=== PATIENT | female | born 1985 | race Caucasian/White ===

== ENCOUNTER 2019-08-13 09:40 | Emergency (ER) | payer OTHER ==
[2019-08-13 10:46] VITALS: BP 125/86; PULSE 84
--- NOTE | 2019-08-13 11:05 | EDM.PDOC ---
ED HPI GENERAL MEDICAL PROBLEM - General Chief Complaint: Cardiovascular Problem Stated Complaint: LEG PAIN AND SOB Time Seen by Provider: 08/13/19 10:58 Source of Information: Reports: Patient, RN Notes Reviewed History Limitations: Reports: No Limitations - History of Present Illness INITIAL COMMENTS - FREE TEXT/NARRATIVE: Patient is a 34-year-old female who presents to the ED for the evaluation of left lower leg pain. The patient states that over the last day or so, she noticed some redness and tender areas to her left lower leg. Patient she has multiple varicose veins, however these appear different in nature. The first areas on the left lateral thigh just above the knee, and the second area is on the left medial calf around the posterior mid calf. The patient states that she does a lot of sitting for work, she is on control, and knows that she is overweight. She states that she started googling her symptoms, and thought she might have a blood clot, she states she was having some mild shortness of breath as well. She also used a tele-doc, and they prompted her to get checked for a DVT or pulmonary embolus. The patient denies any sort of fevers or chills , nausea or vomiting or diarrhea, abdominal pain, chest pain. She notes that she is not a smoker, and she states she took a half a tablet of an anxiety medication called hydroxyl, and this seemed to help relieve some of her shortness of breath symptoms. The patient states that she is on chronic prednisone therapy and azathioprine for an eye disorder, that she was evaluated for at [facility], she states that this was called [facility], or PIC. 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 below) Left Lower Leg Pain Score (Numeric/FACES): 7 - Related Data Allergies Allergy/AdvReac Type Severity Reaction Status Date / Time No Known Allergies Allergy Verified 12/02/16 19:48 Home Meds: Home Meds Control Pill 1 tab PO DAILY 12/02/16 [History] Calcium Carbonate [Calcium] 500 mg PO BID 12/02/16 [History] Mecobalamin [B-12] 1,000 mcg SL DAILY 12/02/16 [History] Multivitamin [Flintstones] 1 each PO DAILY 12/02/16 [History] [place]-3 Fatty Acids [Fish Oil] 1 dose PO DAILY 12/02/16 [History] Pantoprazole Sodium [Protonix] 40 mg PO DAILY 12/02/16 [History] Diclofenac Sodium [Voltaren] 50 mg PO BID #14 tab.ec 08/13/19 [Rx] Past Medical History Gastrointestinal History: Reports: Gastritis, GERD - Past Surgical History HEENT Surgical History: Reports: LASIK GI Surgical History: Reports: Bariatric Procedure, Cholecystectomy, Colonoscopy , Other (See Below) Other GI Surgeries/Procedures: endoscopy Social & Family History - Family History Family Medical History: Noncontributory - Tobacco Use Smoking Status *Q: Never Smoker - Caffeine Use Caffeine Use: Reports: Coffee, Soda, Tea - Recreational Drug Use Recreational Drug Use: No ED ROS GENERAL - Review of Systems Review Of Systems: See Below Constitutional: Denies: Fever, Chills HEENT: Reports: No Symptoms Respiratory: Reports: Shortness of Breath. Denies: Cough Cardiovascular: Denies: Chest Pain Endocrine: Reports: No Symptoms GI/Abdominal: Denies: Abdominal Pain, Diarrhea, Nausea, Vomiting : Reports: No Symptoms Musculoskeletal: Reports: No Symptoms Skin: Reports: Erythema (on affected lump sites), Lumps (There are 2 areas, one on the left lateral thigh just above the knee, and one on the left medial calf.) Neurological: Reports: No Symptoms Psychiatric: Reports: No Symptoms Hematologic/Lymphatic: Reports: No Symptoms Immunologic: Reports: No Symptoms ED EXAM, GENERAL - Physical Exam Exam: See Below Exam Limited By: No Limitations General Appearance: Alert, WD/WN, No Apparent Distress Eye Exam: Bilateral Eye: EOMI, Normal Inspection, PERRL Throat/Mouth: Normal Inspection, Normal Lips, Normal Teeth, Normal Gums, Normal Oropharynx, Normal Voice, No Airway Compromise Head: Atraumatic, Normocephalic Neck: Normal Inspection Respiratory/Chest: No Respiratory Distress, Lungs Clear, Normal Breath Sounds, No Accessory Muscle Use, Chest Non-Tender Cardiovascular: Normal Peripheral Pulses, Regular Rate, Rhythm, No Murmur Peripheral Pulses: 3+: Radial (L), Radial (R), Dorsalis Pedis (L), Dorsalis Pedis (R) GI/Abdominal: Normal Bowel Sounds, Soft, Non-Tender, No Distention, No Mass Extremities: Normal Inspection (multiple varicose veins), Normal Capillary Refill Neurological: Alert, Oriented, Normal Cognition, No Motor/Sensory Deficits Psychiatric: Normal Affect, Normal Mood Skin Exam: Warm, Dry, Intact, No Rash, Erythema (2 areas, area 1: Left lateral thigh above the knee, this area is erythematous, tender to the touch, and roughly 2 cm x 2 cm. Area to: Left medial calf, this area is erythematous and tender to the touch, this is just superior to a large varicose vein, this area measures roughly 2 cm x 2 cm.), Other (Multiple varicose veins located on the left lower extremity and right lower extremity.) Course - Vital Signs Last Recorded V/S: Last Vital Signs Temp 97.2 F 08/13/19 10:39 Pulse 84 08/13/19 10:39 Resp 20 08/13/19 10:39 BP 125/86 08/13/19 10:39 Pulse Ox 100 08/13/19 10:39 - Orders/Labs/Meds Orders: Active Orders 24 hr Category Date Time Status Communication Order [RC] STAT Care 08/13/19 13:02 Active Influenza Vaccine Charge [RC] .DISCHARGE Care 08/13/19 13:15 Active Peripheral IV Care [RC] . DIRECTED Care 08/13/19 11:17 Active Peripheral IV Insertion Adult [OM.PC] Stat Oth 08/13/19 11:16 Ordered Labs: Laboratory Tests 08/13/19 08/13/19 08/13/19 Range/Units 11:22 11:22 11:22 WBC 8.12 (3.98-10.04) K/mm3 RBC 4.07 (3.98-5.22) M/mm3 Hgb 13.3 (11.2-15.7) gm/dl Hct 38.3 (34.1-44.9) % MCV 94.1 (79.4-94.8) fl MCH 32.7 H (25.6-32.2) pg MCHC 34.7 (32.2-35.5) g/dl RDW Std Deviation 51.1 H (36.4-46.3) fL Plt Count 132 L (182-369) K/mm3 MPV 9.6 (9.4-12.3) fl Neutrophils % (Manual) 73 H (40-60) % Band Neutrophils % 3 (0-10) % Lymphocytes % (Manual) 19 L (20-40) % Atypical Lymphs % 0 % Monocytes % (Manual) 3 (2-10) % Eosinophils % (Manual) 2 (0.7-5.8) % Basophils % (Manual) 0 L (0.1-1.2) Platelet Estimate Adequate RBC Morph Comment Normal D-Dimer, Quantitative 0.26 (0.19-0.50) mg/L Sodium 140 (136-145) mEq/L Potassium 3.1 L (3.5-5.1) mEq/L Chloride 104 (98-107) mEq/L Carbon Dioxide 29 (21-32) mEq/L Anion Gap 10.1 (5-15) BUN 15 (7-18) mg/dL Creatinine 0.9 (0.55-1.02) mg/dL Est Cr Clr Drug Dosing 80.90 mL/min Estimated GFR (MDRD) > 60 (>60) mL/min BUN/Creatinine Ratio 16.7 (14-18) Glucose 133 H (74-106) mg/dL Calcium 9.1 (8.5-10.1) mg/dL Total Bilirubin 0.8 (0.2-1.0) mg/dL AST 21 (15-37) U/L ALT 37 (14-59) U/L Alkaline Phosphatase 32 L (46-116) U/L C-Reactive Protein < 0.2 (<1.0) mg/dL Total Protein 6.6 (6.4-8.2) g/dl Albumin 3.5 (3.4-5.0) g/dl Globulin 3.1 gm/dL Albumin/Globulin Ratio 1.1 (1-2) Meds: Medications Discontinued Medications Generic Name Dose Route Start Last Admin Trade Name Sixtoq PRN Reason Stop Dose Admin Hydromorphone HCl 0.5 mg 08/13/19 11:17 08/13/19 11:34 Dilaudid IVPUSH 08/13/19 11:18 0.5 mg ONETIME ONE Administration Sodium Chloride 1,000 mls @ 125 mls/hr 08/13/19 11:18 08/13/19 11:34 Normal Saline IV 08/13/19 19:17 125 mls/hr ONETIME ONE Administration Influenza Virus Vaccine 1 each 08/13/19 13:15 Pharmacy To Dose - Influenza Vaccine IM 08/13/19 13:16 ONETIME ONE Influenza Virus Vaccine 60 mcg 08/13/19 13:30 08/13/19 13:22 Fluzone Quad Syringe IM 08/13/19 13:31 60 mcg .ONCE ONE Administration Sodium Chloride 10 ml 08/13/19 11:16 08/13/19 11:34 Saline Flush FLUSH 10 ml ASDIRECTED PRN Administration Keep Vein Open - Re-Assessments/Exams Free Text/Narrative Re-Assessment/Exam: 08/13/19 11:32 Patient presents to the ED for evaluation of left lower leg pain, with redness and tenderness. I did order CBC, CMP, CRP and a d-dimer for initial lab evaluation, an IV will be placed and 0.5 mg Dilaudid will be given for pain relief, and a left lower leg ultrasound will be obtained to evaluate for clot. Will hold off on the chest CT at this time, and will await lab results before making a decision. Patient's PERC score is 1, and states if d-dimer is positive , then CT should be performed to r/o PE. 08/13/19 12:57 Patient's labs are done and within normal limits her potassium was mildly low at 3.1, patient will be given dietary recommendations to supplement this, d- dimer is not elevated, no chest CT will be done today, the ultrasound demonstrated a thrombophlebitis, and not a blood clot. Patient will be prescribed 50 mg full-term twice a day for 7 days for inflammation relief, and advised to use heat packs to the area. Departure - Departure Time of Disposition: 12:58 Disposition: Home, Self-Care 01 Condition: Fair Clinical Impression: Thrombophlebitis Prescriptions: Diclofenac Sodium [Voltaren] 50 mg PO BID #14 tab.ec Instructions: Phlebitis, [id number] Referrals: Fatimah Cruz PA-C [Primary Care Provider] - Forms: ED Department Discharge Additional Instructions: You were evaluated in the ED today for your painful left lower leg. Your laboratory evaluation was within normal limits, There is no sign of a DVT present at today's visit. Your ultrasound demonstrated that you have thrombophlebitis, which is inflammation of the veins. This does cause some tenderness and other symptoms as you are experiencing. Treatment for this as an anti-inflammatory, you were given a prescription for Voltaren, please take one tab twice a day for 7 days for further relief of this, you may also use heat packs to the affected areas to help relief of symptoms. Your prescription was electronic was sent to [facility] pharmacy located near [facility], this pharmacy is only open from 12 to 4 PM today, he will need to go there to obtain your prescription during this timeframe. You may obtain a heat pack if you do not already have one at this time as well. Recommend that you follow up with a varicose vein clinic for further management of your extensive varicose veins near lower extremities. Please return to the ED if symptoms should change or worsen. - My Orders Last 24 Hours: My Active Orders 08/13/19 11:16 Peripheral IV Insertion Adult [OM.PC] Stat 08/13/19 11:17 Peripheral IV Care [RC] . DIRECTED 08/13/19 13:02 Communication Order [RC] STAT 08/13/19 13:15 Influenza Vaccine Charge [RC] .DISCHARGE - Assessment/Plan Last 24 Hours: My Active Orders 08/13/19 11:16 Peripheral IV Insertion Adult [OM.PC] Stat 08/13/19 11:17 Peripheral IV Care [RC] . DIRECTED 08/13/19 13:02 Communication Order [RC] STAT 08/13/19 13:15 Influenza Vaccine Charge [RC] .DISCHARGE
[2019-08-13] MEDS ORDERED: Sodium Chloride 0.9% 10 ML Syringe FLUSH PRN (11:16)
[2019-08-13] MEDS ORDERED: HYDROmorphone 0.5 MG/0.5 ML Syringe IVPUSH ONE (11:17)
[2019-08-13] MEDS ORDERED: Sodium Chloride 0.9% 1,000 ML IV ONE (11:18)
--- NOTE | 2019-08-13 13:11 | US ---
Left lower extremity deep venous ultrasound: Duplex and color flow imaging was obtained of the left common femoral, proximal greater saphenous, superficial femoral, popliteal, posterior tibial and peroneal veins. Right common femoral vein was also evaluated. Findings: Deep veins show normal phasic flow, augmentation and compression. There is a superficial vein which is felt to represent a varicosity showing clot compatible with superficial thrombophlebitis. This is located within the proximal calf. Impression: 1. Findings compatible with superficial thrombophlebitis within the proximal left calf. 2. No evidence of deep venous thrombosis within the left lower extremity or right common femoral vein. Diagnostic code #3
[2019-08-13] MEDS ORDERED: FLU Vacc QS2019-20(6MOS+)/PF 60 MCG/0.5 ML SYRINGE IM ONE (13:30)
== END 2019-08-13 13:24 | disposition home or self-care (01) ==
LOC: JD.ED 09:40
DX: I80.02 Phlebitis and thrombophlebitis of superficial vessels of left lower extremity (principal); K21.9 Gastro-esophageal reflux disease without esophagitis; Z79.899 Other long term (current) drug therapy; Z90.49 Acquired absence of other specified parts of digestive tract; Z23 Encounter for immunization
CPT/HCPCS: 36415; 80053; 85007; 85027; 85379; 86140; 90471; 90686; 93971; 96361; 96374; 99284; J1170; J7040; G0008

== ENCOUNTER 2020-12-11 07:11 | Inpatient (IN) | payer MEDICAID ==
[2020-12-11] MEDS ORDERED: Ondansetron 4 MG/2 ML SDV IVPUSH PRN (07:17)
[2020-12-11] MEDS ORDERED: Sodium Chloride 0.9% 10 ML Syringe FLUSH PRN (07:17)
[2020-12-11] MEDS ORDERED: Nalbuphine 10 MG/1 ML Vial IVPUSH PRN (07:17)
[2020-12-11] MEDS ORDERED: Misoprostol 25 MCG (1/4 of 100 MCG) Tab VAG STA (07:17)
[2020-12-11] MEDS ORDERED: Oxytocin/Lactated Ringers 10 UNIT/1,000 ML BAG IV SCH ×2 (07:30)
--- NOTE | 2020-12-11 07:36 | PCM.LDHP ---
L&D History of Present Illness - General Date of Service: 12/11/20 Admit Problem/Dx: Patient Status Order with Admit Dx/Problem 12/11/20 07:17 Patient Status [ADT] Routine Admission Diagnosis/Problem Admission Diagnosis/Problem High risk in primigravida greater than 35 years of age, antepartum Source of Information: Patient History Limitations: Reports: No Limitations - History of Present Illness Introduction:: Patient is a 35 y/o at 39 0/7 wks who presents for IOL. Doing well. No major contractions. No major issues. - Related Data Allergies/Adverse Reactions: Allergies Allergy/AdvReac Type Severity Reaction Status Date / Time No Known Allergies Allergy Verified 12/02/16 19:48 Home Medications: Home Meds Control Pill 1 tab PO DAILY 12/02/16 [History] Calcium Carbonate [Calcium] 500 mg PO BID 12/02/16 [History] Mecobalamin [B-12] 1,000 mcg SL DAILY 12/02/16 [History] Multivitamin [Flintstones] 1 each PO DAILY 12/02/16 [History] [place]-3 Fatty Acids [Fish Oil] 1 dose PO DAILY 12/02/16 [History] Pantoprazole Sodium [Protonix] 40 mg PO DAILY 12/02/16 [History] Diclofenac Sodium [Voltaren] 50 mg PO BID #14 tab.ec 08/13/19 [Rx] Past Medical History HEENT History: Reports: Other (See Below) ([place]shot chorioretinopathy) Gastrointestinal History: Reports: Gastritis, GERD, Other (See Below) (gastric ulcer) Immunologic History: Reports: Other (See Below) - Past Surgical History HEENT Surgical History: Reports: LASIK GI Surgical History: Reports: Bariatric Procedure, Cholecystectomy, Colonoscopy, EGD Female Surgical History: Reports: LEEP Social & Family History - Family History Family Medical History: No Pertinent Family History - Tobacco Use Tobacco Use Status *Q: Former Tobacco User - Caffeine Use Caffeine Use: Reports: Coffee, Soda, Tea - Alcohol Use Alcohol Use History: No - Recreational Drug Use Recreational Drug Use: No H&P Review of Systems - Review of Systems: Review Of Systems: See Below General: Reports: No Symptoms Pulmonary: Reports: No Symptoms Cardiovascular: Reports: No Symptoms Gastrointestinal: Reports: No Symptoms Genitourinary: Reports: No Symptoms Musculoskeletal: Reports: No Symptoms Psychiatric: Reports: No Symptoms Neurological: Reports: No Symptoms L&D Exam - Exam Exam: See Below - OB Specific Contraction Intensity: Irritability Movement: Active Heart Tones: Present Heart Tones per Min: 130 Heart Rate (FHR) Variability: Moderate (6-25 bmp) Presentation: Vertex - Rocha Score Rocha Score Cervix Position: Posterior Rocha Score Consistency: Medium Rocha Score Effacement: 0-30% Rocha Score Dilation: Closed Rocha Score 's Station: -3 Rocha Score Total: 1 - Exam General: Alert, Oriented, Cooperative Lungs: Clear to Auscultation, Normal Respiratory Effort Cardiovascular: Regular Rate, Regular Rhythm GI/Abdominal Exam: Soft, Non-Tender Genitourinary: Normal external exam Extremities: Normal Inspection Skin: Warm, Dry, Intact - Problem List (1) 39 weeks gestation of SNOMED Code(s): 37111862 ICD Code: Z3A.39 - 39 WEEKS GESTATION OF Status: Acute Current Visit: Yes (2) Medication exposure during first trimester of SNOMED Code(s): 31241125 ICD Code: O09.891 - SUPERVISION OF OTHER HIGH RISK PREGNANCIES, FIRST TRIMESTER Status: Acute Current Visit: Yes (3) [place] chorioretinopathy SNOMED Code(s): 082173686 ICD Code: H30.90 - UNSPECIFIED CHORIORETINAL INFLAMMATION, UNSPECIFIED EYE Status: Acute Current Visit: Yes (4) Advanced maternal age (AMA) in SNOMED Code(s): 429169054 ICD Code: [id number] - Status: Acute Current Visit: Yes (5) GBS (group B Streptococcus carrier), +RV culture, currently SNOMED Code(s): 7561052650304, 336044217, 5011616615119 ICD Code: O99.820 - STREPTOCOCCUS B CARRIER STATE COMPLICATING Status: Acute Current Visit: Yes Problem List Initiated/Reviewed/Updated: Yes Orders Last 24hrs: Active Orders 24 hr Category Date Time Status Patient Status [ADT] Routine ADT 12/11/20 07:17 Ordered Communication Order [RC] ASDIRECTED Care 12/11/20 07:17 Ordered Communication Order [RC] ASDIRECTED Care 12/11/20 07:17 Ordered Communication Order [RC] ASDIRECTED Care 12/11/20 07:17 Ordered Communication Order [RC] ASDIRECTED Care 12/11/20 07:17 Ordered Heart Tones [RC] ASDIRECTED Care 12/11/20 07:18 Ordered Monitoring [RC] INTERMITTENT Care 12/11/20 07:17 Ordered Non Stress Test [RC] PER UNIT ROUTINE Care 12/11/20 07:17 Ordered Notify Provider [RC] ASDIRECTED Care 12/11/20 07:17 Ordered Notify Provider [RC] PRN Care 12/11/20 07:17 Ordered Peripheral IV Care [RC] . DIRECTED Care 12/11/20 07:18 Ordered Up ad Mikala [RC] ASDIRECTED Care 12/11/20 07:18 Ordered Vaginal Exam [RC] ASDIRECTED Care 12/11/20 07:17 Ordered Vital Signs [RC] ASDIRECTED Care 12/11/20 07:17 Ordered Regular Diet [DIET] Diet 12/11/20 Breakfast Ordered CBC W/O DIFF,HEMOGRAM [HEME] Routine Lab 12/11/20 07:17 Ordered CORONAVIRUS COVID-19 KYLER [MOLEC] Stat Lab 12/11/20 07:22 Ordered RAPID PLASMA REAGIN,RPR [CHEM] Routine Lab 12/11/20 07:17 Ordered TYPE AND SCREEN [BBK] Routine Lab 12/11/20 07:17 Ordered Ampicillin 1 gm Med 12/12/20 03:00 Ordered Sodium Chloride 0.9% [Normal Saline] 100 ml IV Q4H Ampicillin 2 gm Med 12/11/20 23:00 Ordered Sodium Chloride 0.9% [Normal Saline] 100 ml IV ONETIME Lactated Ringers [Ringers, Lactated] 1,000 ml Med 12/11/20 07:30 Ordered IV ASDIRECTED Nalbuphine [Nubain] Med 12/11/20 07:17 Ordered 10 mg IVPUSH Q2H PRN Ondansetron [Zofran] Med 12/11/20 07:17 Ordered 4 mg IVPUSH Q4H PRN Oxytocin/Lactated Ringers [Pitocin in LR 10 Units/1,000 Med 12/11/20 07:30 Ordered ML] 10 unit in 1,000 ml IV .CONTINUOUS Oxytocin/Lactated Ringers [Pitocin in LR 10 Units/1,000 Med 12/11/20 07:30 Ordered ML] 10 unit in 1,000 ml IV TITRATE Sodium Chloride 0.9% [Saline Flush] Med 12/11/20 07:17 Ordered 10 ml FLUSH ASDIRECTED PRN miSOPROStoL [Cytotec] Med 12/11/20 07:17 Stat 25 mcg VAG NOW STA miSOPROStoL [Cytotec] Med 12/11/20 07:17 Ordered 25 mcg VAG Q4H PRN Electronic Heart Tones Ext w TOCO [WOMSER] Oth 12/11/20 07:17 Ordered Routine Electronic Heart Tones Internal [WOMSER] Per Unit Oth 12/11/20 07:17 Ordered Routine Medication Administration Instruction [OM.PC] Oth 12/11/20 07:30 Ordered ASDIRECTED Peripheral IV Insertion Adult [OM.PC] Routine Oth 12/11/20 07:17 Ordered Resuscitation Status Routine Resus Stat 12/11/20 07:17 Ordered Medication Orders Oxytocin/Lactated Ringer's (Pitocin In Lr 10 Units/1,000 Ml) 10 unit in 1,000 mls @ 12 mls/hr IV TITRATE EDGARDO; Protocol Ampicillin Sodium 2 gm/ Sodium (Chloride) 100 mls @ 200 mls/hr IV ONETIME ONE Stop: 12/11/20 23:29 Ampicillin Sodium 1 gm/ Sodium (Chloride) 100 mls @ 200 mls/hr IV Q4H EDGARDO Oxytocin/Lactated Ringer's (Pitocin In Lr 10 Units/1,000 Ml) 10 unit in 1,000 mls @ 500 mls/hr IV .CONTINUOUS EDGARDO Lactated Ringer's (Ringers, Lactated) 1,000 mls @ 40 mls/hr IV ASDIRECTED EDGARDO Misoprostol (Cytotec) 25 mcg VAG Q4H PRN PRN Reason: cervical ripening Misoprostol (Cytotec) 25 mcg VAG NOW STA Stop: 12/11/20 07:18 Nalbuphine HCl (Nubain) 10 mg IVPUSH Q2H PRN PRN Reason: Pain Ondansetron HCl (Zofran) 4 mg IVPUSH Q4H PRN PRN Reason: Nausea/Vomiting Sodium Chloride (Saline Flush) 10 ml FLUSH ASDIRECTED PRN PRN Reason: Keep Vein Open Assessment/Plan Comment:: * Labs to be done * Cytotec for IOL. Switch to pitocin / AROM when able * GBS prophylaxis when more active * Pain management per patient preference * Anticipate
[2020-12-11] MEDS: Misoprostol 25 MCG (1/4 of 100 MCG) Tab VAG PRN ×3 (12:31→20:41)
--- NOTE | 2020-12-11 18:56 | PCM.PNLD ---
Labor Progress Note - VS & Meds Vital Signs: Last Vital Signs Temp 36.8 C 12/11/20 08:00 Pulse 65 12/11/20 12:35 Resp 16 12/11/20 08:00 BP 137/77 12/11/20 12:35 Pulse Ox 100 12/11/20 12:35 Active Medications: Current Medications Oxytocin/Lactated Ringer's (Pitocin In Lr 10 Units/1,000 Ml) 10 unit in 1,000 mls @ 12 mls/hr IV TITRATE EDGARDO; Protocol Ampicillin Sodium 2 gm/ Sodium (Chloride) 100 mls @ 200 mls/hr IV ONETIME ONE Stop: 12/11/20 23:29 Ampicillin Sodium 1 gm/ Sodium (Chloride) 100 mls @ 200 mls/hr IV Q4H EDGARDO Oxytocin/Lactated Ringer's (Pitocin In Lr 10 Units/1,000 Ml) 10 unit in 1,000 mls @ 500 mls/hr IV .CONTINUOUS EDGARDO Lactated Ringer's (Ringers, Lactated) 1,000 mls @ 40 mls/hr IV ASDIRECTED EDGARDO Misoprostol (Cytotec) 25 mcg VAG Q4H PRN PRN Reason: cervical ripening Last Admin: 12/11/20 16:27 Dose: 25 mcg Documented by: Nalbuphine HCl (Nubain) 10 mg IVPUSH Q2H PRN PRN Reason: Pain Ondansetron HCl (Zofran) 4 mg IVPUSH Q4H PRN PRN Reason: Nausea/Vomiting Sodium Chloride (Saline Flush) 10 ml FLUSH ASDIRECTED PRN PRN Reason: Keep Vein Open Discontinued Medications Misoprostol (Cytotec) 25 mcg VAG NOW STA Stop: 12/11/20 07:18 Last Admin: 12/11/20 08:23 Dose: 25 mcg Documented by: - Uterine Contractions Uterine Monitoring Mode: External [place] Contraction Intensity: Irritability Uterine Resting Tone: Soft - Monitoring Monitor Mode: External Ultrasound Heart Rate (FHR) Baseline: 140 Heart Rate (FHR) Variability: Moderate (6-25 bmp) Accelerations: Present, 15x15 Decelerations: None - Vaginal Exam Dilation (cm): 0-1 - Labor Progress (Free Text) Labor Progress: Doing well. Had 3rd dose of cytotec placed at 1630. Will plan 4th dose at 2030 and then transition to pitocin afterwards.
--- NOTE | 2020-12-11 22:38 | PCM.PREANE ---
Preanesthetic Assessment - Procedure Proposed Procedure: Continuous Labor epidural - Anesthesia/Transfusion/Family Hx Anesthesia History: Prior Anesthesia Without Reaction Transfusion History: No Prior Transfusion(s) - Review of Systems General: No Symptoms Pulmonary: No Symptoms Cardiovascular: No Symptoms Gastrointestinal: No Symptoms Neurological: No Symptoms Other: Reports: None - Physical Assessment Vital Signs: Last Vital Signs Temp 98.2 F 12/11/20 08:00 Pulse 65 12/11/20 12:35 Resp 16 12/11/20 08:00 BP 137/77 12/11/20 12:35 Pulse Ox 100 12/11/20 12:35 Height: 1.7 m Weight: 130.181 kg ASA Class: 3 (morbid obesity) Mental Status: Alert & Oriented x3 Airway Class: Mallampati = 2 Dentition: Reports: Normal Dentition Thyro-Mental Finger Breadths: 3 Mouth Opening Finger Breadths: 3 ROM/Head Extension: Full Lungs: Clear to Auscultation, Normal Respiratory Effort Cardiovascular: Regular Rate, Regular Rhythm - Lab Values: Laboratory Last Values WBC 7.74 K/mm3 (3.98-10.04) 12/11/20 07:17 RBC 3.81 M/mm3 (3.98-5.22) L 12/11/20 07:17 Hgb 11.7 gm/dl (11.2-15.7) D 12/11/20 07:17 Hct 35.6 % (34.1-44.9) 12/11/20 07:17 MCV 93.4 fl (79.4-94.8) 12/11/20 07:17 MCH 30.7 pg (25.6-32.2) 12/11/20 07:17 MCHC 32.9 g/dl (32.2-35.5) 12/11/20 07:17 RDW Std Deviation 47.5 fL (36.4-46.3) H 12/11/20 07:17 Plt Count 138 K/mm3 (182-369) L 12/11/20 07:17 MPV 10.5 fl (9.4-12.3) 12/11/20 07:17 RPR Non-reactive (NONREACTIVE) 12/11/20 07:44 SARS-CoV-2 RNA (KYLER) Negative (NEGATIVE) 12/11/20 07:40 Blood Type Cancelled 12/11/20 07:44 Gel Antibody Screen Cancelled 12/11/20 07:44 - Allergies Allergies/Adverse Reactions: Allergies Allergy/AdvReac Type Severity Reaction Status Date / Time avocado Allergy Swelling Verified 12/11/20 08:42 - Acknowledgements Anesthesia Type Planned: Epidural Pt an Appropriate Candidate for the Planned Anesthesia: Yes Alternatives and Risks of Anesthesia Discussed w Pt/Guardian: Yes Pt/Guardian Understands and Agrees with Anesthesia Plan: Yes PreAnesthesia Questionnaire HEENT History: Reports: Other (See Below) Gastrointestinal History: Reports: Gastritis, GERD, Other (See Below) DIRECT MAIL MARKETER History: Reports: Psychiatric History: Reports: Other (See Below) Other Psychiatric History: Suicide Thoughts 2-3 years ago. Endocrine/Metabolic History: Reports: Obesity/BMI 30+ Immunologic History: Reports: Other (See Below) - Past Surgical History HEENT Surgical History: Reports: LASIK, Other (See Below) Other HEENT Surgeries/Procedures: Keratomileusis Bilateral GI Surgical History: Reports: Bariatric Procedure, Cholecystectomy, Colonoscopy, EGD Other GI Surgeries/Procedures: endoscopy Female Surgical History: Reports: LEEP - SUBSTANCE USE Tobacco Use Status *Q: Former Tobacco User Tobacco Use Within Last Twelve Months: Cigarettes Recreational Drug Use History: No - HOME MEDS Home Medications: Home Meds Calcium Carbonate [Calcium] 500 mg PO BID 12/02/16 [History] Multivitamin [Flintstones] 1 each PO DAILY 12/02/16 [History] [place]-3 Fatty Acids [Fish Oil] 1 dose PO DAILY 12/02/16 [History] Pantoprazole Sodium [Protonix] 40 mg PO DAILY 12/02/16 [History] Ascorbic Acid [Vitamin C] 250 mg PO DAILY 12/11/20 [History] Ferrous Sulfate [Iron] 325 mg PO DAILY 12/11/20 [History] azaTHIOprine [Imuran] 50 mg PO DAILY 12/11/20 [History] - CURRENT (IN HOUSE) MEDS Current Meds: Current Medications Oxytocin/Lactated Ringer's (Pitocin In Lr 10 Units/1,000 Ml) 10 unit in 1,000 mls @ 12 mls/hr IV TITRATE EDGARDO; Protocol Ampicillin Sodium 2 gm/ Sodium (Chloride) 100 mls @ 200 mls/hr IV ONETIME ONE Stop: 12/11/20 23:29 Ampicillin Sodium 1 gm/ Sodium (Chloride) 100 mls @ 200 mls/hr IV Q4H EDGARDO Oxytocin/Lactated Ringer's (Pitocin In Lr 10 Units/1,000 Ml) 10 unit in 1,000 mls @ 500 mls/hr IV .CONTINUOUS EDGARDO Lactated Ringer's (Ringers, Lactated) 1,000 mls @ 40 mls/hr IV ASDIRECTED EDGARDO Nalbuphine HCl (Nubain) 10 mg IVPUSH Q2H PRN PRN Reason: Pain Ondansetron HCl (Zofran) 4 mg IVPUSH Q4H PRN PRN Reason: Nausea/Vomiting Sodium Chloride (Saline Flush) 10 ml FLUSH ASDIRECTED PRN PRN Reason: Keep Vein Open Discontinued Medications Misoprostol (Cytotec) 25 mcg VAG Q4H PRN PRN Reason: cervical ripening Last Admin: 12/11/20 20:41 Dose: 25 mcg Documented by: Misoprostol (Cytotec) 25 mcg VAG NOW STA Stop: 12/11/20 07:18 Last Admin: 12/11/20 08:23 Dose: 25 mcg Documented by:
[2020-12-11] MEDS ORDERED: Bupivacaine/fentaNYL/NS 100 ML Bag EPIDUR PRN (22:40)
[2020-12-11] MEDS ORDERED: fentaNYL 100 MCG/2 ML SDV EPIDUR PRN (22:40)
[2020-12-11] MEDS ORDERED: ePHEDrine 50 MG/ML SDV IVPUSH PRN (22:40)
[2020-12-11] MEDS ORDERED: diphenhydrAMINE 50 MG/ML SDV IVPUSH PRN (22:40)
[2020-12-11] MEDS ORDERED: Ampicillin 2 GM in Sodium Chloride 0.9% 100 ML IV ONE (23:00)
[2020-12-12] MEDS: Lactated Ringers 1,000 ML IV SCH ×3 (01:03→12:01)
--- NOTE | 2020-12-12 07:03 | PCM.PNLD ---
Labor Progress Note - VS & Meds Vital Signs: Last Vital Signs Temp 36.8 C 12/11/20 08:00 Pulse 65 12/11/20 12:35 Resp 16 12/11/20 08:00 BP 137/77 12/11/20 12:35 Pulse Ox 100 12/11/20 12:35 Active Medications: Current Medications Diphenhydramine HCl (Benadryl) 25 mg IVPUSH Q6H PRN PRN Reason: pruritis Ephedrine Sulfate (Ephedrine Sulfate) 5 mg IVPUSH ASDIRECTED PRN PRN Reason: Hypotension Fentanyl (Sublimaze) 100 mcg EPIDUR Q3H PRN PRN Reason: Pain Fentanyl/Bupivacaine HCl (Fentanyl/Bupivacaine/Ns 2 Mcg-0.125% 100 Ml) 100 ml EPIDUR ASDIRECTED PRN PRN Reason: Pain Oxytocin/Lactated Ringer's (Pitocin In Lr 10 Units/1,000 Ml) 10 unit in 1,000 mls @ 12 mls/hr IV TITRATE EDGARDO; Protocol Last Admin: 12/12/20 01:03 Dose: 2 munits/min, 12 mls/hr Documented by: Ampicillin Sodium 1 gm/ Sodium (Chloride) 100 mls @ 200 mls/hr IV Q4H EDGARDO Oxytocin/Lactated Ringer's (Pitocin In Lr 10 Units/1,000 Ml) 10 unit in 1,000 mls @ 500 mls/hr IV .CONTINUOUS EDGARDO Lactated Ringer's (Ringers, Lactated) 1,000 mls @ 40 mls/hr IV ASDIRECTED EDGARDO Last Admin: 12/12/20 01:03 Dose: 40 mls/hr Documented by: Nalbuphine HCl (Nubain) 10 mg IVPUSH Q2H PRN PRN Reason: Pain Ondansetron HCl (Zofran) 4 mg IVPUSH Q4H PRN PRN Reason: Nausea/Vomiting Sodium Chloride (Saline Flush) 10 ml FLUSH ASDIRECTED PRN PRN Reason: Keep Vein Open Discontinued Medications Ampicillin Sodium 2 gm/ Sodium (Chloride) 100 mls @ 200 mls/hr IV ONETIME ONE Stop: 12/11/20 23:29 Last Admin: 12/12/20 00:37 Dose: Not Given Documented by: Misoprostol (Cytotec) 25 mcg VAG Q4H PRN PRN Reason: cervical ripening Last Admin: 12/11/20 20:41 Dose: 25 mcg Documented by: Misoprostol (Cytotec) 25 mcg VAG NOW STA Stop: 12/11/20 07:18 Last Admin: 12/11/20 08:23 Dose: 25 mcg Documented by: - Uterine Contractions Uterine Monitoring Mode: External [place] Contraction Intensity: Mild to Moderate Uterine Resting Tone: Soft - Monitoring Monitor Mode: External Ultrasound Heart Rate (FHR) Baseline: 130 Heart Rate (FHR) Variability: Moderate (6-25 bmp) Accelerations: Present, 15x15 Decelerations: Late (rare ), Intermittent (<50% x 20 min) Strip Review: Category II - Vaginal Exam Dilation (cm): 1 Effacement (Percent): 50 Station: -3 Cervical Position: Midposition - Labor Progress (Free Text) Labor Progress: Patient started on Pitocin at 0100. Was to a high of 10. At 0530 had the start of some variables and late appearing decelerations. Pitocin dropped to 7. Eventually did discontinue completely. Myers bulb placed. Will plan on starting antibiotics. Restart pitocin again. Findings carefully reviewed
[2020-12-12] MEDS ORDERED: Ampicillin 2 GM in Sodium Chloride 0.9% 100 ML IV ONE (07:30)
[2020-12-12] MEDS: Ampicillin 1 GM in Sodium Chloride 0.9% 100 ML IV SCH ×4 (11:28→20:11)
[2020-12-12] MEDS ORDERED: Metoclopramide 10 MG/2 ML SDV IVPUSH ONE (12:09)
[2020-12-12] MEDS ORDERED: Citric Acid/Sodium Citrate Solution 30 ML Cup PO ONE (12:09)
[2020-12-12] MEDS ORDERED: ceFAZolin 2 GM in Premix Bag 1 BAG IV ONE (12:09)
[2020-12-12] MEDS ORDERED: ceFAZolin 1 GM in Premix Bag 1 BAG IV ONE (12:09)
--- NOTE | 2020-12-12 12:12 | PCM.SN.2 ---
- Free Text/Narrative Note: 1215 Patient this morning with pitocin discontinued from value of 10 due to recurrent late decelerations. Myers bulb then placed. Restarted pitocin later in AM and at a value of 3 again had large variables and recurrent late decelerations. Pitocin discontinued at that time. Has been minimally qiana since that time. Rates as mild. Myers bulb removed. Patient about 2.5 cm, 50%, -3, medium consistency. Reviewed options of restarting pitocin, AROM, or if desired PLTCS. Reviewed that somewhat concerning with mild contraction pattern and low doses of medication there have been heart rate pattern abnormalities. Discussed whil baby may tolerate labor I am somewhat concerned for intolerance arising as labor progresses. Patient and her allowed time to talk in private. Ultimately they elected to proceed with PLTCS. Will not restart medications. Keep FHR tracing continuously. OR, anesthesia, and Pediatric teams made aware. Daja Guerra MD
[2020-12-12] MEDS ORDERED: Lactated Ringers 2,000 ML ONE (15:25)
[2020-12-12] MEDS ORDERED: Ondansetron 4 MG/2 ML SDV ONE ×2 (15:25→17:19)
[2020-12-12] MEDS ORDERED: Oxytocin 10 Units/1 ML SDV ONE (15:25)
[2020-12-12] MEDS ORDERED: Ketorolac 30 MG/ML SDV ONE (15:25)
[2020-12-12] MEDS ORDERED: ceFAZolin 1 GM Vial ONE ×2 (15:27)
[2020-12-12] MEDS ORDERED: Morphine PF 10 MG/10 ML SDV ONE (15:29)
[2020-12-12] MEDS ORDERED: ePHEDrine 50 MG/ML SDV ONE (16:59)
[2020-12-12] MEDS ORDERED: Methylergonovine 0.2 MG/1 ML Amp ONE (17:07)
[2020-12-12] MEDS ORDERED: fentaNYL 100 MCG/2 ML SDV IVPUSH PRN (17:34)
[2020-12-12] MEDS ORDERED: Meperidine 50 MG/ML Vial IVPUSH PRN (17:34)
[2020-12-12] MEDS ORDERED: diphenhydrAMINE 50 MG/ML SDV IVPUSH PRN ×2 (17:34→18:53)
[2020-12-12] MEDS ORDERED: Ondansetron 4 MG/2 ML SDV IVPUSH PRN (17:34)
[2020-12-12] MEDS ORDERED: Metoclopramide 10 MG/2 ML SDV IV PRN (17:35)
--- NOTE | 2020-12-12 17:36 | PCM.OPNOTE ---
- General Post-Op/Procedure Note Date of Surgery/Procedure: 12/12/20 Operative Procedure(s): Primary low transverse Findings: Baby girl in a vertex presentation. Weight of 7 lbs 3 oz. APGARS of 8 & 8. Normal appearance of uterus, fallopian tubes, and ovaries. Pre Op Diagnosis: 39 1/7 wks gestation. Failed induction - intolerance Post-Op Diagnosis: Same Anesthesia Technique: Spinal Primary Surgeon: Daja Guerra Secondary Surgeon: Tiffani Rosen Anesthesia Provider: Celsa De La Cruz Reason Market Research Analyst Was Necessary: BMI of patient. Speed/safety of procedure Pathology: Cord blood collected. Placenta discarded Fluid Replacement, Intraop: 1,200 Output, Urine Amount: 50 EBL in mLs: 800 Complications: None Condition: Good Free Text/Narrative:: The risks, benefits, indications, potential complications, and alternatives were explained to the patient and informed consent obtained. After induction of anesthesia, the patient was placed in a supine position and then draped and prepped in the usual sterile manner. A Pfannenstiel incision was made and carried down through the subcutaneous tissue to the fascia. Fascial incision was made and extended transversely. The fascia was from the underlying rectus tissue superiorly and inferiorly. The peritoneum was identified and entered. Peritoneal incision was extended longitudinally. The utero-vesical peritoneal reflection was incised transversely and the bladder flap was bluntly freed from the lower uterine segment. A low transverse uterine incision was made sharply with a scalpel and extended bluntly in a cephalocaudad direction. A baby girl was delivered from a vertex presentation with APGARS as above. After the umbilical cord was clamped and cut cord blood was obtained for evaluation. The placenta was removed intact and appeared normal. The uterus was exteriorized and cleared of clots. The uterine outline, tubes and ovaries appeared normal. The uterine incision was closed with running locked sutures of 0 Vicryl. Hemostasis was obtained with a second imbricating layer of 0 Vicryl. Uterine tone poor at this time. Patient given 0.2 mg of IM methergine with good response. The uterus was then placed back into the abdomen. The infracolic gutters were cleared of blood clots. The fascia was then reapproximated with running sutures of 0 Vicryl. The subcutaneous tissue was irrigated with sterile warm normal saline, hemostasis obtained with cautery. This layer was also closed with a running 0 Vicryl. The skin was reapproximated with running Subcuticular 4-0 monocryl sutures. Instrument, sponge, and needle counts were correct prior the abdominal closure and at the conclusion of the case.
--- NOTE | 2020-12-12 17:36 | PCM.POSTAN ---
POST ANESTHESIA ASSESSMENT - MENTAL STATUS Mental Status: Alert, Oriented - VITAL SIGNS Vital Signs: Last Vital Signs Temp 98.2 F 12/11/20 08:00 Pulse 65 12/11/20 12:35 Resp 16 12/11/20 08:00 BP 137/77 12/11/20 12:35 Pulse Ox 100 12/11/20 12:35 1730 113/64 99 75 9 97.7 - RESPIRATORY Respiratory Status: Respiratory Rate WNL, Airway Patent, O2 Saturation Stable, Supplemental Oxygen - CARDIOVASCULAR CV Status: Pulse Rate WNL, Blood Pressure Stable - GASTROINTESTINAL GI Status: No Symptoms - PAIN Pain Score: 0 - POST OP HYDRATION Hydration Status: Adequate & Stable
[2020-12-12] MEDS ORDERED: Acetaminophen/oxyCODONE 325-5 MG Tab PO PRN (18:53)
[2020-12-12] MEDS ORDERED: Docusate Sodium 100 MG Cap PO PRN (18:53)
[2020-12-12] MEDS ORDERED: Ondansetron 4 MG/2 ML SDV IV PRN (18:53)
[2020-12-12] MEDS ORDERED: Dextrose 5%-Lactated Ringers 1,000 ML IV SCH (18:53)
[2020-12-12] MEDS ORDERED: ePHEDrine 50 MG/ML SDV IVPUSH PRN (18:53)
[2020-12-12] MEDS: Ketorolac 30 MG/ML SDV IVPUSH SCH (23:15)
[2020-12-13] MEDS: Acetaminophen/oxyCODONE 325-5 MG Tab PO PRN ×2 (02:49→16:01)
[2020-12-13] MEDS: Ketorolac 30 MG/ML SDV IVPUSH SCH ×2 (06:29→11:57)
--- NOTE | 2020-12-13 10:44 | PCM.PNPP ---
- General Info Date of Service: 12/13/20 Functional Status: Reports: Pain Controlled, Tolerating Diet, Ambulating, Urinating - Review of Systems General: Reports: No Symptoms Pulmonary: Reports: No Symptoms Cardiovascular: Reports: No Symptoms Gastrointestinal: Reports: Abdominal Pain Genitourinary: Reports: No Symptoms Musculoskeletal: Reports: No Symptoms - Patient Data Vital Signs - Most Recent: Last Vital Signs Temp 36.4 C 12/13/20 03:00 Pulse 64 12/13/20 02:04 Resp 18 12/13/20 03:00 BP 111/66 12/13/20 03:00 Pulse Ox 100 12/13/20 06:52 Weight - Most Recent: 130.181 kg I&O - Last 24 Hours: Intake & Output 12/12/20 12/13/20 12/13/20 22:59 06:59 14:59 Intake Total 750 1000 1200 Output Total 635 50 Balance 115 1000 1150 Lab Results - Last 24 Hours: Laboratory Results - last 24 hr 12/11/20 12/13/20 Range/Units 07:17 06:05 WBC 8.20 (3.98-10.04) K/mm3 RBC 3.39 L (3.98-5.22) M/mm3 Hgb 10.5 L (11.2-15.7) gm/dl Hct 32.1 L (34.1-44.9) % MCV 94.7 (79.4-94.8) fl MCH 31.0 (25.6-32.2) pg MCHC 32.7 (32.2-35.5) g/dl RDW Std Deviation 47.2 H (36.4-46.3) fL Plt Count 131 L (182-369) K/mm3 MPV 10.4 (9.4-12.3) fl Antibody Identification Anti-D Med Orders - Current: Current Medications Azathioprine (Imuran) 50 mg PO DAILY EDGARDO Diphenhydramine HCl (Benadryl) 25 mg IVPUSH Q6H PRN PRN Reason: Pruritis Last Admin: 12/12/20 20:07 Dose: 25 mg Documented by: Diphenhydramine HCl (Benadryl) 25 mg IVPUSH Q6H PRN PRN Reason: Itching or Nausea Docusate Sodium (Colace) 100 mg PO Q12H PRN PRN Reason: Constipation Ephedrine Sulfate (Ephedrine Sulfate) 5 mg IVPUSH SEECOMMENT PRN PRN Reason: Other Fentanyl (Sublimaze) 50 mcg IVPUSH Q5M PRN PRN Reason: Pain Ibuprofen (Motrin) 600 mg PO Q6H PRN PRN Reason: mild pain or fever Ketorolac Tromethamine (Toradol) 30 mg IVPUSH Q6H EDGARDO Stop: 12/13/20 11:46 Last Admin: 12/13/20 06:29 Dose: 30 mg Documented by: Meperidine HCl (Meperidine) 25 mg IVPUSH ONETIME PRN PRN Reason: Shivering Metoclopramide HCl (Reglan) 10 mg IV ONETIME PRN PRN Reason: Nausea/Vomiting Ondansetron HCl (Zofran) 4 mg IVPUSH ONETIME PRN PRN Reason: Nausea/Vomiting Ondansetron HCl (Zofran) 4 mg IV Q8H PRN PRN Reason: Nausea/Vomiting Oxycodone/Acetaminophen (Percocet 325-5 Mg) 1 tab PO Q4H PRN PRN Reason: Pain (moderate 4-6) Last Admin: 12/13/20 02:49 Dose: 1 tab Documented by: Oxycodone/Acetaminophen (Percocet 325-5 Mg) 2 tab PO Q4H PRN PRN Reason: Pain (severe 7-10) Discontinued Medications Cefazolin Sodium (Ancef) Confirm Administered Dose 2 gm .ROUTE .STK-MED ONE Stop: 12/12/20 15:28 Cefazolin Sodium (Ancef) Confirm Administered Dose 1 gm .ROUTE .STK-MED ONE Stop: 12/12/20 15:28 Citric Acid/Sodium Citrate (Bicitra Solution) 30 ml PO ONETIME ONE Stop: 12/12/20 12:10 Last Admin: 12/12/20 15:00 Dose: 30 ml Documented by: Diphenhydramine HCl (Benadryl) 25 mg IVPUSH Q6H PRN PRN Reason: pruritis Ephedrine Sulfate (Ephedrine Sulfate) 5 mg IVPUSH ASDIRECTED PRN PRN Reason: Hypotension Ephedrine Sulfate (Ephedrine Sulfate) Confirm Administered Dose 50 mg .ROUTE .STK-MED ONE Stop: 12/12/20 17:00 Fentanyl (Sublimaze) 100 mcg EPIDUR Q3H PRN PRN Reason: Pain Fentanyl/Bupivacaine HCl (Fentanyl/Bupivacaine/Ns 2 Mcg-0.125% 100 Ml) 100 ml EPIDUR ASDIRECTED PRN PRN Reason: Pain Oxytocin/Lactated Ringer's (Pitocin In Lr 10 Units/1,000 Ml) 10 unit in 1,000 mls @ 12 mls/hr IV TITRATE EDGARDO; Protocol Last Titration: 12/12/20 09:30 Dose: 0 munits/min, 0 mls/hr Documented by: Ampicillin Sodium 2 gm/ Sodium (Chloride) 100 mls @ 200 mls/hr IV ONETIME ONE Stop: 12/11/20 23:29 Last Admin: 12/12/20 00:37 Dose: Not Given Documented by: Ampicillin Sodium 1 gm/ Sodium (Chloride) 100 mls @ 200 mls/hr IV Q4H [facility] Last Admin: 12/12/20 20:11 Dose: Not Given Documented by: Oxytocin/Lactated Ringer's (Pitocin In Lr 10 Units/1,000 Ml) 10 unit in 1,000 mls @ 500 mls/hr IV .CONTINUOUS EDGARDO Lactated Ringer's (Ringers, Lactated) 1,000 mls @ 40 mls/hr IV ASDIRECTED [facility] Last Admin: 12/12/20 12:01 Dose: 40 mls/hr Documented by: Ampicillin Sodium 2 gm/ Sodium (Chloride) 100 mls @ 200 mls/hr IV ONETIME ONE Stop: 12/12/20 07:59 Last Admin: 12/12/20 07:35 Dose: 200 mls/hr Documented by: Ampicillin Sodium 1 gm/ Sodium (Chloride) 100 mls @ 200 mls/hr IV Q4H [facility] Last Admin: 12/12/20 20:10 Dose: Not Given Documented by: Cefazolin Sodium/Dextrose 2 gm (/ Premix) 50 mls @ 100 mls/hr IV ONETIME ONE Stop: 12/12/20 12:38 Last Admin: 12/12/20 20:10 Dose: Not Given Documented by: Cefazolin Sodium/Dextrose 1 gm (/ Premix) 50 mls @ 100 mls/hr IV ONETIME ONE Stop: 12/12/20 12:38 Last Admin: 12/12/20 20:10 Dose: Not Given Documented by: Lactated Ringer's (Ringers, Lactated) Confirm Administered Dose 2,000 mls @ as directed .ROUTE .STK-MED ONE Stop: 12/12/20 15:26 Dextrose/Lactated Ringer's (Dextrose 5%-Lactated Ringers) 1,000 mls @ 125 mls/hr IV ASDIRECTED EDGARDO Stop: 12/13/20 02:52 Last Admin: 12/12/20 20:08 Dose: 125 mls/hr Documented by: Ketorolac Tromethamine (Toradol) Confirm Administered Dose 30 mg .ROUTE .STK-MED ONE Stop: 12/12/20 15:26 Methylergonovine Maleate (Methergine) Confirm Administered Dose 0.2 mg .ROUTE .STK-MED ONE Stop: 12/12/20 17:08 Last Admin: 12/12/20 17:08 Dose: 0.2 mg Documented by: Metoclopramide HCl (Reglan) 10 mg IVPUSH ONETIME ONE Stop: 12/12/20 12:10 Last Admin: 12/12/20 15:01 Dose: 10 mg Documented by: Misoprostol (Cytotec) 25 mcg VAG Q4H PRN PRN Reason: cervical ripening Last Admin: 12/11/20 20:41 Dose: 25 mcg Documented by: Misoprostol (Cytotec) 25 mcg VAG NOW STA Stop: 12/11/20 07:18 Last Admin: 12/11/20 08:23 Dose: 25 mcg Documented by: Morphine Sulfate (Duramorph Pf) Confirm Administered Dose 10 mg .ROUTE .STK-MED ONE Stop: 12/12/20 15:30 Nalbuphine HCl (Nubain) 10 mg IVPUSH Q2H PRN PRN Reason: Pain Last Admin: 12/12/20 07:41 Dose: 10 mg Documented by: Ondansetron HCl (Zofran) 4 mg IVPUSH Q4H PRN PRN Reason: Nausea/Vomiting Ondansetron HCl (Zofran) Confirm Administered Dose 4 mg .ROUTE .STK-MED ONE Stop: 12/12/20 15:26 Ondansetron HCl (Zofran) Confirm Administered Dose 4 mg .ROUTE .STK-MED ONE Stop: 12/12/20 17:20 Oxytocin (Pitocin) Confirm Administered Dose 10 unit .ROUTE .STK-MED ONE Stop: 12/12/20 15:26 Sodium Chloride (Saline Flush) 10 ml FLUSH ASDIRECTED PRN PRN Reason: Keep Vein Open - Interaction Disposition, : [place] in Room with Family Infant Interaction: Holding Infant Infant Feeding: Attempted ; Nursed Fair/Poor Support Person: Significant Other - Recovery Exam Fundal Tone: Firm Fundal Level: 2 Fingerbreadths Below Umbilicus Fundal Placement: Midline Lochia Amount: Small Lochia Color: Rubra/Red Perineum Description: Intact, Minimal Bruising/Swelling Urinary Elimination: Indwelling Catheter - Exam General: Alert, Oriented, Cooperative Lungs: Clear to Auscultation, Normal Respiratory Effort Cardiovascular: Regular Rate, Regular Rhythm GI/Abdominal Exam: Soft, Tender (appropriate ) Extremities: Normal Inspection Skin: Warm, Dry, Intact Wound/Incisions: Healing Well, No Drainage - Problem List & Annotations (1) 39 weeks gestation of SNOMED Code(s): 67043805 Code(s): Z3A.39 - 39 WEEKS GESTATION OF Status: Acute Current Visit: Yes (2) Medication exposure during first trimester of SNOMED Code(s): 81254212 Code(s): O09.891 - SUPERVISION OF OTHER HIGH RISK PREGNANCIES, FIRST TRIMEST ER Status: Acute Current Visit: Yes (3) [place] chorioretinopathy SNOMED Code(s): 503740473 Code(s): H30.90 - UNSPECIFIED CHORIORETINAL INFLAMMATION, UNSPECIFIED EYE Status: Acute Current Visit: Yes (4) Advanced maternal age (AMA) in SNOMED Code(s): 415617355 Code(s): EEC8493 - Status: Acute Current Visit: Yes (5) GBS (group B Streptococcus carrier), +RV culture, currently SNOMED Code(s): 7275048697073, 622905817, 4132056385694 Code(s): O99.820 - STREPTOCOCCUS B CARRIER STATE COMPLICATING Status: Acute Current Visit: Yes (6) intolerance to labor, delivered, current hospitalization SNOMED Code(s): 917507802, 984497797 Code(s): O77.9 - LABOR AND DELIVERY COMPLICATED BY STRESS, UNSPECIFIED Status: Acute Current Visit: Yes (7) Failed induction of labor SNOMED Code(s): 37560531 Code(s): O61.9 - FAILED INDUCTION OF LABOR, UNSPECIFIED Status: Acute Current Visit: Yes Qualifiers: Failed induction of labor type: medical Qualified Code(s): O61.0 - Failed medical induction of labor (8) Status post primary low transverse section SNOMED Code(s): 568813760, 40151630, 664772292, 377184280, 687193332 Code(s): Z98.891 - HISTORY OF UTERINE SCAR FROM PREVIOUS SURGERY Status: Acute Current Visit: Yes - Problem List Review Problem List Initiated/Reviewed/Updated: Yes - My Orders Last 24 Hours: My Active Orders 12/12/20 Dinner Regular Diet [DIET] 12/12/20 18:53 Acetaminophen/oxyCODONE [Percocet 325-5 MG] 1 tab PO Q4H PRN Acetaminophen/oxyCODONE [Percocet 325-5 MG] 2 tab PO Q4H PRN Docusate Sodium [Colace] 100 mg PO Q12H PRN Ondansetron [Zofran] 4 mg IV Q8H PRN diphenhydrAMINE [Benadryl] 25 mg IVPUSH Q6H PRN ePHEDrine [ePHEDrine sulfate] 5 mg IVPUSH SEECOMMENT PRN 12/12/20 18:53 Activity as Tolerated [RC] .Routine Antiembolic Devices [RC] PER UNIT ROUTINE Communication Order [RC] PER UNIT ROUTINE Communication Order [RC] PER UNIT ROUTINE May Shower [RC] PER UNIT ROUTINE Notify Provider Intake and Out [RC] ASDIRECTED RT Incentive Spirometry [RC] Q2HWA Vital Signs [RC] Q4HR Assess Lochia [WOMSER] Per Unit Routine Assess Uterine Involution [WOMSER] Per Unit Routine Breast Pump [WOMSER] Per Unit Routine Heat Therapy [OM.PC] Per Unit Routine Peripheral IV Discontinue [OM.PC] Routine Sequential Compression Device [OM.PC] Per Unit Routine 12/12/20 23:45 Ketorolac [Toradol] 30 mg IVPUSH Q6H 12/13/20 09:00 azaTHIOprine [Imuran] 50 mg PO DAILY 12/13/20 17:38 Urinary Catheter Removal [RC] Per Unit Routine 12/13/20 18:00 Ibuprofen [Motrin] 600 mg PO Q6H PRN - Assessment Assessment:: PPD#0 - Plan Plan:: * Routine cares * Breast feeding * Discussed home medication fo Azathioprine. Low dose. Review of [employer] database with no significant contraindications to use. Discussed with patient. Will continue using * Discharge home in 1-2 days
--- NOTE | 2020-12-13 15:09 | PCM48HPAN ---
Post Anesthesia Note - EVALUATION WITHIN 48HRS OF ANESTHETIC Vital Signs in Normal Range: Yes Patient Participated in Evaluation: Yes Respiratory Function Stable: Yes Airway Patent: Yes Cardiovascular Function Stable: Yes Hydration Status Stable: Yes Pain Control Satisfactory: Yes Nausea and Vomiting Control Satisfactory: Yes Mental Status Recovered: Yes Vital Signs: Last Vital Signs Temp 36.3 C 12/13/20 12:04 Pulse 86 12/13/20 12:04 Resp 16 12/13/20 13:00 BP 117/74 12/13/20 12:04 Pulse Ox 100 12/13/20 13:00
[2020-12-13] MEDS: Ibuprofen 600 MG Tab PO PRN (19:52)
[2020-12-14] MEDS: Acetaminophen/oxyCODONE 325-5 MG Tab PO PRN ×2 (02:19→21:35)
[2020-12-14] MEDS: Ibuprofen 600 MG Tab PO PRN ×3 (06:26→19:39)
--- NOTE | 2020-12-14 10:14 | PCM.DCSUM1 ---
Discharge Summary - Hospital Course Free Text/Narrative:: Is a 35-year-old 1 now para 1-0-0-1 female who was admitted at 39-0/7 weeks gestational age for elective induction of labor. Please see admission history and physical for details. Predelivery course. Patient had an extended induction with no significant advancement in progression of cervical dilation or descent of the baby's head. There was eventual intolerance of labor on the part of the baby and decision was made to proceed to section. Please see operative report. Patient underwent primary low uterine segment transverse section under regional block on 12/12/2020. This with resultant viable 7 pound 3 ounce female infant with Apgars of 8 and 8. Please see procedure note for details. Postoperatively patient has done very well. She presently is on a regular diet, has normal vital signs. She is ambulating well, bottle and breast-feeding voiding without problems. Her temperature has been stable and normal. She is desiring discharge home. She is presently using Percocet and ibuprofen for pain control. Diagnosis: Stroke: No - Discharge Data Discharge Date: 12/14/20 Discharge Disposition: Home, Self-Care 01 Condition: Good - Referral to Home Health Primary Care Physician: Fatimah Cruz PA-C - Patient Summary/Data Operative Procedure(s) Performed: Primary low transverse - Patient Instructions Diet: Regular Diet as Tolerated (Nursing diet with increased calories and calcium as recommended) Activity: As Tolerated (No intercourse or tampons until seen back. No lifting greater than 15 pounds or driving a car for the next 7 to 10 days.) Driving: Do Not Drive Showering/Bathing: May Shower Wound/Incision Care: Keep Operative Site/Wound Site Clean and Dry Notify Provider of: Fever, Increased Pain, Swelling and Redness, Nausea and/or Vomiting - Discharge Plan Home Medications: Home Meds Calcium Carbonate [Calcium] 500 mg PO BID 12/02/16 [History] Multivitamin [Flintstones] 1 each PO DAILY 12/02/16 [History] [place] Fatty Acids [Fish Oil] 1 dose PO DAILY 12/02/16 [History] Pantoprazole Sodium [Protonix] 40 mg PO DAILY 12/02/16 [History] Ascorbic Acid [Vitamin C] 250 mg PO DAILY 12/11/20 [History] Ferrous Sulfate [Iron] 325 mg PO DAILY 12/11/20 [History] Acetaminophen/oxyCODONE [Percocet 325-5 MG] 2 tab PO Q4H PRN tablet 12/14/20 [Rx] Docusate Sodium [Colace] 100 mg PO Q12H PRN cap 12/14/20 [Rx] Ibuprofen [Motrin] 600 mg PO Q6H PRN tablet 12/14/20 [Rx] Referrals: Daja Guerra MD [Physician] - (Patient to call in the next few days to make an appointment to see Dr. Guerra for evaluation.) - Discharge Summary/Plan Comment DC Time >30 min.: No Discharge Summary/Plan Comment: Discharge instructions: 1. Discharge home 2. Diet, activity and follow-up discussed with patient. Recommend nursing diet with increased calories and calcium. 3. Precautions given concern increased pain, bleeding, temperature, signs/symptoms of DVT/PE. 4. Medications per home medication was printed, discussed with and given to the patient. Call Dr. Guerra's office to discuss whether to continue the azathioprine post . 5. Return to clinic-Dr. Gamez [place]-patient to call for an appointment. Diagnosis: 1. Term [id number]/7-week gestational agefailed induction of laborfetal intolerance of labor-delivered Condition: Good - Patient Data Vitals - Most Recent: Last Vital Signs Temp 36.4 C 12/14/20 02:17 Pulse 73 12/14/20 02:17 Resp 18 12/14/20 02:17 BP 109/80 12/14/20 02:17 Pulse Ox 98 12/14/20 02:17 Weight - Most Recent: 130.181 kg I&O - Last 24 hours: Intake & Output 12/13/20 12/14/20 12/14/20 22:59 06:59 14:59 Intake Total 120 Output Total 200 Balance -80 Med Orders - Current: Current Medications Azathioprine (Imuran) 50 mg PO DAILY EDGARDO Last Admin: 12/14/20 09:06 Dose: Not Given Documented by: Diphenhydramine HCl (Benadryl) 25 mg IVPUSH Q6H PRN PRN Reason: Pruritis Last Admin: 12/12/20 20:07 Dose: 25 mg Documented by: Diphenhydramine HCl (Benadryl) 25 mg IVPUSH Q6H PRN PRN Reason: Itching or Nausea Docusate Sodium (Colace) 100 mg PO Q12H PRN PRN Reason: Constipation Last Admin: 12/14/20 09:05 Dose: 100 mg Documented by: Ephedrine Sulfate (Ephedrine Sulfate) 5 mg IVPUSH SEECOMMENT PRN PRN Reason: Other Fentanyl (Sublimaze) 50 mcg IVPUSH Q5M PRN PRN Reason: Pain Ibuprofen (Motrin) 600 mg PO Q6H PRN PRN Reason: mild pain or fever Last Admin: 12/14/20 06:26 Dose: 600 mg Documented by: Meperidine HCl (Meperidine) 25 mg IVPUSH ONETIME PRN PRN Reason: Shivering Metoclopramide HCl (Reglan) 10 mg IV ONETIME PRN PRN Reason: Nausea/Vomiting Ondansetron HCl (Zofran) 4 mg IVPUSH ONETIME PRN PRN Reason: Nausea/Vomiting Ondansetron HCl (Zofran) 4 mg IV Q8H PRN PRN Reason: Nausea/Vomiting Oxycodone/Acetaminophen (Percocet 325-5 Mg) 1 tab PO Q4H PRN PRN Reason: Pain (moderate 4-6) Last Admin: 12/14/20 02:19 Dose: 1 tab Documented by: Oxycodone/Acetaminophen (Percocet 325-5 Mg) 2 tab PO Q4H PRN PRN Reason: Pain (severe 7-10) Discontinued Medications Cefazolin Sodium (Ancef) Confirm Administered Dose 2 gm .ROUTE .STK-MED ONE Stop: 12/12/20 15:28 Cefazolin Sodium (Ancef) Confirm Administered Dose 1 gm .ROUTE .STK-MED ONE Stop: 12/12/20 15:28 Citric Acid/Sodium Citrate (Bicitra Solution) 30 ml PO ONETIME ONE Stop: 12/12/20 12:10 Last Admin: 12/12/20 15:00 Dose: 30 ml Documented by: Diphenhydramine HCl (Benadryl) 25 mg IVPUSH Q6H PRN PRN Reason: pruritis Ephedrine Sulfate (Ephedrine Sulfate) 5 mg IVPUSH ASDIRECTED PRN PRN Reason: Hypotension Ephedrine Sulfate (Ephedrine Sulfate) Confirm Administered Dose 50 mg .ROUTE .STK-MED ONE Stop: 12/12/20 17:00 Fentanyl (Sublimaze) 100 mcg EPIDUR Q3H PRN PRN Reason: Pain Fentanyl/Bupivacaine HCl (Fentanyl/Bupivacaine/Ns 2 Mcg-0.125% 100 Ml) 100 ml EPIDUR ASDIRECTED PRN PRN Reason: Pain Oxytocin/Lactated Ringer's (Pitocin In Lr 10 Units/1,000 Ml) 10 unit in 1,000 mls @ 12 mls/hr IV TITRATE EDGARDO; Protocol Last Titration: 12/12/20 09:30 Dose: 0 munits/min, 0 mls/hr Documented by: Ampicillin Sodium 2 gm/ Sodium (Chloride) 100 mls @ 200 mls/hr IV ONETIME ONE Stop: 12/11/20 23:29 Last Admin: 12/12/20 00:37 Dose: Not Given Documented by: Ampicillin Sodium 1 gm/ Sodium (Chloride) 100 mls @ 200 mls/hr IV Q4H [facility] Last Admin: 12/12/20 20:11 Dose: Not Given Documented by: Oxytocin/Lactated Ringer's (Pitocin In Lr 10 Units/1,000 Ml) 10 unit in 1,000 mls @ 500 mls/hr IV .CONTINUOUS EDGARDO Lactated Ringer's (Ringers, Lactated) 1,000 mls @ 40 mls/hr IV ASDIRECTED [facility] Last Admin: 12/12/20 12:01 Dose: 40 mls/hr Documented by: Ampicillin Sodium 2 gm/ Sodium (Chloride) 100 mls @ 200 mls/hr IV ONETIME ONE Stop: 12/12/20 07:59 Last Admin: 12/12/20 07:35 Dose: 200 mls/hr Documented by: Ampicillin Sodium 1 gm/ Sodium (Chloride) 100 mls @ 200 mls/hr IV Q4H [facility] Last Admin: 12/12/20 20:10 Dose: Not Given Documented by: Cefazolin Sodium/Dextrose 2 gm (/ Premix) 50 mls @ 100 mls/hr IV ONETIME ONE Stop: 12/12/20 12:38 Last Admin: 12/12/20 20:10 Dose: Not Given Documented by: Cefazolin Sodium/Dextrose 1 gm (/ Premix) 50 mls @ 100 mls/hr IV ONETIME ONE Stop: 12/12/20 12:38 Last Admin: 12/12/20 20:10 Dose: Not Given Documented by: Lactated Ringer's (Ringers, Lactated) Confirm Administered Dose 2,000 mls @ as directed .ROUTE .STK-MED ONE Stop: 12/12/20 15:26 Dextrose/Lactated Ringer's (Dextrose 5%-Lactated Ringers) 1,000 mls @ 125 mls/hr IV ASDIRECTED [facility] Stop: 12/13/20 02:52 Last Admin: 12/12/20 20:08 Dose: 125 mls/hr Documented by: Ketorolac Tromethamine (Toradol) Confirm Administered Dose 30 mg .ROUTE .STK-MED ONE Stop: 12/12/20 15:26 Ketorolac Tromethamine (Toradol) 30 mg IVPUSH Q6H [facility] Stop: 12/13/20 11:46 Last Admin: 12/13/20 11:57 Dose: 30 mg Documented by: Methylergonovine Maleate (Methergine) Confirm Administered Dose 0.2 mg .ROUTE .STK-MED ONE Stop: 12/12/20 17:08 Last Admin: 12/12/20 17:08 Dose: 0.2 mg Documented by: Metoclopramide HCl (Reglan) 10 mg IVPUSH ONETIME ONE Stop: 12/12/20 12:10 Last Admin: 12/12/20 15:01 Dose: 10 mg Documented by: Misoprostol (Cytotec) 25 mcg VAG Q4H PRN PRN Reason: cervical ripening Last Admin: 12/11/20 20:41 Dose: 25 mcg Documented by: Misoprostol (Cytotec) 25 mcg VAG NOW STA Stop: 12/11/20 07:18 Last Admin: 12/11/20 08:23 Dose: 25 mcg Documented by: Morphine Sulfate (Duramorph Pf) Confirm Administered Dose 10 mg .ROUTE .STK-MED ONE Stop: 12/12/20 15:30 Nalbuphine HCl (Nubain) 10 mg IVPUSH Q2H PRN PRN Reason: Pain Last Admin: 12/12/20 07:41 Dose: 10 mg Documented by: Ondansetron HCl (Zofran) 4 mg IVPUSH Q4H PRN PRN Reason: Nausea/Vomiting Ondansetron HCl (Zofran) Confirm Administered Dose 4 mg .ROUTE .STK-MED ONE Stop: 12/12/20 15:26 Ondansetron HCl (Zofran) Confirm Administered Dose 4 mg .ROUTE .STK-MED ONE Stop: 12/12/20 17:20 Oxytocin (Pitocin) Confirm Administered Dose 10 unit .ROUTE .STK-MED ONE Stop: 12/12/20 15:26 Sodium Chloride (Saline Flush) 10 ml FLUSH ASDIRECTED PRN PRN Reason: Keep Vein Open
[2020-12-14 19:52] VITALS: BP 131/86; PULSE 89
== END 2020-12-14 21:55 | disposition home or self-care (01) | DRG 787 ==
LOC: JD.OB 07:11 → OBSVTOIN 12-12 17:03 → JD.OB 12-12 17:04
PROVIDERS: ADMIT Obstetrics & Gynecology; ATTEND Obstetrics & Gynecology
PROC: 10D00Z1 Extraction of Products of Conception, Low, Open Approach (ICD-10-PCS; principal; 2020-12-12)
PROC: 3E0P7VZ Introduction of Hormone into Female Reproductive, Via Natural or Artificial Opening (ICD-10-PCS; 2020-12-12)
PROC: 3E0R3BZ Introduction of Anesthetic Agent into Spinal Canal, Percutaneous Approach (ICD-10-PCS; 2020-12-12)
PROC: 3E033VJ Introduction of Other Hormone into Peripheral Vein, Percutaneous Approach (ICD-10-PCS; 2020-12-12)
DX: O61.0 Failed medical induction of labor (principal); H30.90 Unspecified chorioretinal inflammation, unspecified eye; O99.892 Other specified diseases and conditions complicating childbirth; O99.62 Diseases of the digestive system complicating childbirth; K21.9 Gastro-esophageal reflux disease without esophagitis; O99.824 Streptococcus B carrier state complicating childbirth; O76 Abnormality in fetal heart rate and rhythm complicating labor and delivery; Z20.822 Contact with and (suspected) exposure to COVID-19; O99.214 Obesity complicating childbirth; E66.9 Obesity, unspecified; Z90.49 Acquired absence of other specified parts of digestive tract; Z87.891 Personal history of nicotine dependence; Z98.84 Bariatric surgery status; Z3A.39 39 weeks gestation of pregnancy; Z37.0 Single live birth
CPT/HCPCS: 01961; 36415; 59025; 85027; 86592; 86850; 86870; 86900; 86901; A9270-GY; J0290; J0690; J1200; J1885; J2210; J2270; J2300; J2405; J2590; J2765; J7120; J7121; U0002

== ENCOUNTER 2021-03-03 10:16 | Emergency (ER) | payer MEDICAID ==
[2021-03-03 10:46] VITALS: BP 111/73; PULSE 76
[2021-03-03] MEDS ORDERED: Sodium Chloride 0.9% 1,000 ML IV STA (11:03)
--- NOTE | 2021-03-03 11:48 | EDM.PDOC ---
ED HPI GENERAL MEDICAL PROBLEM - General Chief Complaint: [employer] Problem Stated Complaint: HEAVY VAGINAL BLEEDING Time Seen by Provider: 03/03/21 11:09 Source of Information: Reports: Patient, RN Notes Reviewed History Limitations: Reports: No Limitations - History of Present Illness INITIAL COMMENTS - FREE TEXT/NARRATIVE: Patient is a 36-year-old female presenting to the emergency department with complaints of heavy vaginal bleeding. She states that 10 days ago, she developed spotting and up until yesterday had what she describes as a normal period. Yesterday, the bleeding increased to the point where she is saturating a tampon or pad every few hours. She had the Mirena IUD placed 3 weeks ago. She reports that she had severe cramping last evening and this morning, however it is since improved. This morning, she was sitting on the toilet and had severe cramping. When she stood up she became lightheaded, diaphoretic, and sweaty. At the time of exam she had mild lower abdominal discomfort. She contacted her [employer], Dr. Guerra, by [facility] this morning after these events and was scheduled to see her at 10 AM this morning, however after visiting with the nurse, they recommended that she come to the emergency department for evaluation. Denies any fever or chills. Lower Abdomen Pain Score (Numeric/FACES): 4 - Related Data Allergies Allergy/AdvReac Type Severity Reaction Status Date / Time avocado Allergy Severe Swelling Verified 03/03/21 10:46 Home Meds: Home Meds Calcium Carbonate [Calcium] 500 mg PO BID 12/02/16 [History] Multivitamin [Flintstones] 1 each PO DAILY 12/02/16 [History] [place]-3 Fatty Acids [Fish Oil] 1 dose PO DAILY 12/02/16 [History] Pantoprazole Sodium [Protonix] 40 mg PO DAILY 12/02/16 [History] Ascorbic Acid [Vitamin C] 250 mg PO DAILY 12/11/20 [History] Ferrous Sulfate [Iron] 325 mg PO DAILY 12/11/20 [History] Docusate Sodium [Colace] 100 mg PO Q12H PRN cap 12/14/20 [Rx] Ibuprofen [Motrin] 600 mg PO Q6H PRN tablet 12/14/20 [Rx] Past Medical History HEENT History: Reports: Other (See Below) Gastrointestinal History: Reports: Gastritis, GERD, Other (See Below) [employer] History: Reports: Psychiatric History: Reports: Other (See Below) Other Psychiatric History: Suicide Thoughts 2-3 years ago. Endocrine/Metabolic History: Reports: Obesity/BMI 30+ Immunologic History: Reports: Other (See Below) - Infectious Disease History Infectious Disease History: Reports: Chicken Pox, Influenza - Past Surgical History HEENT Surgical History: Reports: LASIK, Other (See Below) Other HEENT Surgeries/Procedures: Keratomileusis Bilateral GI Surgical History: Reports: Bariatric Procedure, Cholecystectomy, Colonoscopy, EGD Other GI Surgeries/Procedures: endoscopy Female Surgical History: Reports: Section, LEEP Social & Family History - Family History Family Medical History: No Pertinent Family History - Tobacco Use Tobacco Use Status *Q: Former Tobacco User Used Tobacco, but Quit: Yes Month/Year Tobacco Last Used: 04/2015 - Caffeine Use Caffeine Use: Reports: Coffee, Soda - Recreational Drug Use Recreational Drug Use: No ED ROS GENERAL - Review of Systems Review Of Systems: See Below Constitutional: Reports: Diaphoresis. Denies: Fever, Chills HEENT: Reports: No Symptoms Respiratory: Reports: No Symptoms. Denies: Shortness of Breath, Cough Cardiovascular: Reports: Lightheadedness. Denies: Chest Pain, Dyspnea on Exertion Endocrine: Reports: No Symptoms GI/Abdominal: Reports: Abdominal Pain (Lower abdominal cramping). Denies: Diarrhea, Nausea, Vomiting : Reports: Irregular Menses (Heavy bleeding), Pain (Pelvic) Musculoskeletal: Reports: No Symptoms Skin: Reports: No Symptoms Neurological: Reports: Dizziness Psychiatric: Reports: No Symptoms Hematologic/Lymphatic: Reports: No Symptoms Immunologic: Reports: No Symptoms ED EXAM, RENAL/ - Physical Exam Exam: See Below Exam Limited By: No Limitations General Appearance: Alert, WD/WN, No Apparent Distress Respiratory/Chest: No Respiratory Distress, Lungs Clear, Normal Breath Sounds, No Accessory Muscle Use, Chest Non-Tender Cardiovascular: Normal Peripheral Pulses, Regular Rate, Rhythm, No Edema, No Gallop, No JVD, No Murmur, No Rub GI/Abdominal: Normal Bowel Sounds, Soft, No Organomegaly, No Distention, No Abnormal Bruit, No Mass, Tender (Suprapubic) Neurological: Alert, Oriented, CN II-XII Intact, Normal Cognition, Normal Gait, Normal Reflexes, No Motor/Sensory Deficits Psychiatric: Normal Affect, Normal Mood Skin Exam: Warm, Dry, Intact, Normal Color, No Rash Course - Vital Signs Last Recorded V/S: Last Vital Signs Temp 97.3 F 03/03/21 10:38 Pulse 76 03/03/21 10:38 Resp 16 03/03/21 10:38 BP 111/73 03/03/21 10:38 Pulse Ox 98 03/03/21 10:38 Orthostatic Blood Pressure [ 115/79 Standing] Orthostatic Blood Pressure [ 109/78 Sitting] Orthostatic Blood Pressure [ 107/76 Supine] - Orders/Labs/Meds Labs: Laboratory Tests 03/03/21 03/03/21 03/03/21 Range/Units 11:23 11:23 11:23 WBC 6.02 (3.98-10.04) K/mm3 RBC 4.02 (3.98-5.22) M/mm3 Hgb 11.8 (11.2-15.7) gm/dl Hct 36.1 (34.1-44.9) % MCV 89.8 D (79.4-94.8) fl MCH 29.4 (25.6-32.2) pg MCHC 32.7 (32.2-35.5) g/dl RDW Std Deviation 40.1 (36.4-46.3) fL Plt Count 163 L (182-369) K/mm3 MPV 9.7 (9.4-12.3) fl Neut % (Auto) 70.2 (34.0-71.1) % Lymph % (Auto) 21.4 (19.3-51.7) % [place] % (Auto) 6.1 (4.7-12.5) % Eos % (Auto) 1.8 (0.7-5.8) Baso % (Auto) 0.2 (0.1-1.2) % Neut # (Auto) 4.22 (1.56-6.13) K/mm3 Lymph # (Auto) 1.29 (1.18-3.74) K/mm3 [place] # (Auto) 0.37 H (0.24-0.36) K/mm3 Eos # (Auto) 0.11 (0.04-0.36) K/mm3 Baso # (Auto) 0.01 (0.01-0.08) K/mm3 Sodium 141 (136-145) mEq/L Potassium 4.0 (3.5-5.1) mEq/L Chloride 105 (98-107) mEq/L Carbon Dioxide 26 (21-32) mEq/L Anion Gap 14.0 (5-15) BUN 17 (7-18) mg/dL Creatinine 0.8 (0.55-1.02) mg/dL Est Cr Clr Drug Dosing 92.72 mL/min Estimated GFR (MDRD) > 60 (>60) mL/min BUN/Creatinine Ratio 21.3 H (14-18) Glucose 105 (74-106) mg/dL Calcium 8.4 L (8.5-10.1) mg/dL Total Bilirubin 0.9 (0.2-1.0) mg/dL AST 17 (15-37) U/L ALT 25 (14-59) U/L Alkaline Phosphatase 72 (46-116) U/L Total Protein 7.0 (6.4-8.2) g/dl Albumin 3.7 (3.4-5.0) g/dl Globulin 3.3 gm/dL Albumin/Globulin Ratio 1.1 (1-2) HCG, Qual Negative (NEGATIVE) Urine Color (Yellow) Urine Appearance (Clear) Urine pH (5.0-8.0) Ur Specific [place] (1.005-1.030) Urine Protein (Negative) Urine Glucose (UA) (Negative) Urine Ketones (Negative) Urine Occult Blood (Negative) Urine Nitrite (Negative) Urine Bilirubin (Negative) Urine Urobilinogen (0.2-1.0) Ur Leukocyte Esterase (Negative) Urine RBC (0-5) /hpf Urine WBC (0-5) /hpf Ur Squamous Epith Cells (0-5) /hpf Urine Bacteria (FEW) /hpf Urine Mucus (FEW) /hpf 03/03/21 Range/Units 12:50 WBC (3.98-10.04) K/mm3 RBC (3.98-5.22) M/mm3 Hgb (11.2-15.7) gm/dl Hct (34.1-44.9) % MCV (79.4-94.8) fl MCH (25.6-32.2) pg MCHC (32.2-35.5) g/dl RDW Std Deviation (36.4-46.3) fL Plt Count (182-369) K/mm3 MPV (9.4-12.3) fl Neut % (Auto) (34.0-71.1) % Lymph % (Auto) (19.3-51.7) % [place] % (Auto) (4.7-12.5) % Eos % (Auto) (0.7-5.8) Baso % (Auto) (0.1-1.2) % Neut # (Auto) (1.56-6.13) K/mm3 Lymph # (Auto) (1.18-3.74) K/mm3 [place] # (Auto) (0.24-0.36) K/mm3 Eos # (Auto) (0.04-0.36) K/mm3 Baso # (Auto) (0.01-0.08) K/mm3 Sodium (136-145) mEq/L Potassium (3.5-5.1) mEq/L Chloride (98-107) mEq/L Carbon Dioxide (21-32) mEq/L Anion Gap (5-15) BUN (7-18) mg/dL Creatinine (0.55-1.02) mg/dL Est Cr Clr Drug Dosing mL/min Estimated GFR (MDRD) (>60) mL/min BUN/Creatinine Ratio (14-18) Glucose (74-106) mg/dL Calcium (8.5-10.1) mg/dL Total Bilirubin (0.2-1.0) mg/dL AST (15-37) U/L ALT (14-59) U/L Alkaline Phosphatase (46-116) U/L Total Protein (6.4-8.2) g/dl Albumin (3.4-5.0) g/dl Globulin gm/dL Albumin/Globulin Ratio (1-2) HCG, Qual (NEGATIVE) Urine Color Yellow (Yellow) Urine Appearance Clear (Clear) Urine pH 6.5 (5.0-8.0) Ur Specific [place] 1.015 (1.005-1.030) Urine Protein Trace H (Negative) Urine Glucose (UA) Negative (Negative) Urine Ketones Negative (Negative) Urine Occult Blood 3+ H (Negative) Urine Nitrite Negative (Negative) Urine Bilirubin Negative (Negative) Urine Urobilinogen 0.2 (0.2-1.0) Ur Leukocyte Esterase Negative (Negative) Urine RBC >100 H (0-5) /hpf Urine WBC 0-5 (0-5) /hpf Ur Squamous Epith Cells 0-5 (0-5) /hpf Urine Bacteria Few (FEW) /hpf Urine Mucus Few (FEW) /hpf Meds: Medications Discontinued Medications Generic Name Dose Route Start Last Admin Trade Name Amando PRN Reason Stop Dose Admin Sodium Chloride 1,000 mls @ 999 mls/hr 03/03/21 11:03 03/03/21 11:27 Normal Saline IV 03/03/21 12:03 999 mls/hr NOW STA Administration - Re-Assessments/Exams Free Text/Narrative Re-Assessment/Exam: Patient is a 36-year-old female presenting to the emergency department for evaluation with regards to heavy vaginal bleeding. Bleeding began 10 days ago, however did become heavy until yesterday. She had IUD placed 3 weeks ago. On exam, she does have some suprapubic tenderness. Orthostatic vital signs were completed and found to be normal. She states that she did feel dizzy and lightheaded earlier this morning, however she was also experiencing significant cramping at that time so this was likely a vasovagal response. I have ordered blood work to include CBC, CMP, qualitative hCG, and urinalysis. Also complete a transvaginal non-OB ultrasound. 03/03/21 13:04 Hematology is grossly unremarkable. Hemoglobin stable at 11.8. Qualitative hCG is negative. Results of ultrasound are pending. Patient has not provided a urine sample thus far. 03/03/21 13:37 Pelvic ultrasound shows IUD present in the endometrial cavity. Urinalysis showed blood in the urine but no signs of infection. Results discussed with patient. She states she was able to feel the strings of her IUD yesterday. Called and spoke with Dr. Guerra, her [employer]. She discussed that the first period after having a baby is often quite heavy. If the patient would like, she could do a tapering control pack, however there is a slightly higher risk of blood clots associated with this given that she is recently . Discussed this with the patient. She would like to forego control at this time. She will call to schedule a follow-up with Dr. Guerra in the clinic for tomorrow or the next day. Recommend that she take ibuprofen routinely for the next few days. Discussed return precautions. Discharge instructions as documented. Departure - Departure Time of Disposition: 13:38 Disposition: Home, Self-Care 01 Condition: Good Clinical Impression: Menorrhagia Qualifiers: Menorrhagia type: with irregular cycle Qualified Code(s): N92.1 - Excessive and frequent menstruation with irregular cycle - Discharge Information *PRESCRIPTION DRUG MONITORING PROGRAM REVIEWED*: No *COPY OF PRESCRIPTION DRUG MONITORING REPORT IN PATIENT GREG: No Instructions: Metrorrhagia, [id number] Referrals: Fatimah Cruz PA-C [Primary Care Provider] - Daja Guerra MD [Physician] - Forms: ED Department Discharge Additional Instructions: You were seen in the emergency department today for evaluation with regards to heavy vaginal bleeding as well as cramping. Work-up included blood work, urinalysis, and a pelvic ultrasound. Results of your work-up were found to be normal. Your hemoglobin was normal 11.8. Pelvic ultrasound did show the IUD was appropriately placed within your uterus. Case was discussed with your [employer]AR[employer], Dr. Guerra. She discussed that it is not to have heavier than normal bleeding your first period after having a baby. The possibility of con trol pills was discussed and declined at this time. Recommend that you take ibuprofen 600 to 800 mg every 6 hours routinely for the next few days. Call to schedule follow-up appointment with Dr. Guerra in the clinic. If you should experience any new or worsening symptoms of concern, please not hesitate to return to the emergency department for reevaluation. Sepsis Event Note (ED) - Evaluation Sepsis Screening Result: No Definite Risk
--- NOTE | 2021-03-03 13:17 | US ---
Pelvic ultrasound: Multiple real-time images of the pelvis were obtained transvaginally. Comparison: No prior pelvic imaging is available. Uterus is anteverted. Echogenic structure is noted within the endometrial cavity compatible with IUD. No discrete myometrial abnormality is appreciated. Small amount of fluid is seen within the cul-de-sac which is believed to be physiologic. Right and left ovaries appear within normal limits. Endometrial thickness is 1.3 cm Measurements: Right ovary: 3.1 x 1.0 x 2.0 cm Left ovary: 3.4 x 1.3 1.4 cm Uterus: Length 7.9 cm, AP height 3.6 cm, transverse width 5.7 cm Impression: 1. IUD is present within the endometrial cavity. 2. Other normal findings as noted above. Diagnostic code #1
== END 2021-03-03 13:50 | disposition home or self-care (01) ==
LOC: JD.ED 10:16
DX: N92.1 Excessive and frequent menstruation with irregular cycle (principal); K21.9 Gastro-esophageal reflux disease without esophagitis; E66.9 Obesity, unspecified; Z79.899 Other long term (current) drug therapy; Z87.891 Personal history of nicotine dependence; Z68.41 Body mass index [BMI] 40.0-44.9, adult; Z91.018 Allergy to other foods
CPT/HCPCS: 36415; 76830; 80053; 81001; 84703; 85025; 99284; J7030; 99283

== ENCOUNTER 2022-06-29 08:00 | Inpatient (IN) | payer MEDICAID ==
[2022-07-01] MEDS ORDERED: Citric Acid/Sodium Citrate Solution 30 ML Cup PO ONE (02:20)
[2022-07-01] MEDS ORDERED: Metoclopramide 10 MG/2 ML SDV IVPUSH ONE (02:20)
[2022-07-01] MEDS ORDERED: Lactated Ringers 1,000 ML IV SCH (02:30)
[2022-07-01] MEDS ORDERED: Oxytocin/Lactated Ringers 10 UNIT/1,000 ML BAG IV SCH (02:30)
[2022-07-01] MEDS ORDERED: Oxytocin 10 Units/1 ML SDV ONE (06:37)
[2022-07-01] MEDS ORDERED: Morphine PF 10 MG/10 ML SDV ONE (06:39)
[2022-07-01] MEDS ORDERED: ceFAZolin 2 GM Vial ONE ×2 (06:40→07:40)
[2022-07-01] MEDS ORDERED: Ketorolac 30 MG/ML SDV ONE (06:42)
[2022-07-01] MEDS ORDERED: Ondansetron 4 MG/2 ML SDV ONE (06:42)
[2022-07-01] MEDS ORDERED: ePHEDrine 50 MG/ML SDV ONE (07:44)
[2022-07-01] MEDS ORDERED: Sodium Chloride 0.9% 10 ML Syringe FLUSH SCH (09:00)
[2022-07-01] MEDS ORDERED: Ondansetron 4 MG/2 ML SDV IVPUSH PRN ×2 (09:24→11:53)
[2022-07-01] MEDS ORDERED: diphenhydrAMINE 50 MG/ML SDV IVPUSH PRN ×2 (09:24→11:19)
[2022-07-01] MEDS ORDERED: fentaNYL 100 MCG/2 ML SDV IVPUSH PRN (09:24)
[2022-07-01] MEDS ORDERED: Dextrose 5%-Lactated Ringers 1,000 ML IV SCH (11:19)
[2022-07-01] MEDS ORDERED: ePHEDrine 50 MG/ML SDV IVPUSH PRN (11:19)
[2022-07-01] MEDS ORDERED: Acetaminophen/oxyCODONE 325-5 MG Tab PO PRN (11:19)
[2022-07-01] MEDS ORDERED: Naloxone 0.4 MG/ML SDV IVPUSH PRN (11:19)
[2022-07-01] MEDS ORDERED: Promethazine 25 MG Tab PO PRN (12:09)
[2022-07-01] MEDS ORDERED: Lactated Ringers 500 ML IV ONE (14:11)
[2022-07-01] MEDS: Ketorolac 30 MG/ML SDV IVPUSH SCH ×2 (14:41→20:06)
[2022-07-01] MEDS ORDERED: Dextrose 5%-Lactated Ringers 1,000 ML IV ONE (15:15)
[2022-07-02] MEDS: Ketorolac 30 MG/ML SDV IVPUSH SCH (03:01)
[2022-07-02] MEDS: Acetaminophen/oxyCODONE 325-5 MG Tab PO PRN ×4 (03:04→21:16)
[2022-07-02] MEDS: Ibuprofen 600 MG Tab PO PRN ×2 (09:36→15:53)
[2022-07-02] MEDS: Docusate Sodium 100 MG Cap PO PRN (21:16)
[2022-07-03] MEDS: Ibuprofen 600 MG Tab PO PRN (00:08)
[2022-07-03] MEDS: Acetaminophen/oxyCODONE 325-5 MG Tab PO PRN (03:58)
[2022-07-03] MEDS: Docusate Sodium 100 MG Cap PO PRN (10:10)
[2022-07-03 13:03] VITALS: BP 117/62; PULSE 82
== END 2022-07-03 10:45 | disposition home or self-care (01) | DRG 788 ==
LOC: JD.OB 07-01 05:29
PROVIDERS: ADMIT Obstetrics & Gynecology; ATTEND Obstetrics & Gynecology
PROC: 10D00Z1 Extraction of Products of Conception, Low, Open Approach (ICD-10-PCS; principal; 2022-07-01)
DX: O34.211 Maternal care for low transverse scar from previous cesarean delivery (principal); Z3A.39 39 weeks gestation of pregnancy; Z37.0 Single live birth; O24.420 Gestational diabetes mellitus in childbirth, diet controlled; O99.214 Obesity complicating childbirth; E66.9 Obesity, unspecified
CPT/HCPCS: 36415; 59025; 82947; 85025; 85027; 85461; 86592; 86850; 86870; 86900; 86901; A9270-GY; J0690; J1885; J2274; J2405; J2590; J2765; J2790; J7120; J7121; J8597